=== PATIENT | female | born 1940 | race Caucasian/White ===

== ENCOUNTER → 2018-10-01 | Day surgery (SDC) | payer OTHER, BC ==
[~2018-10-01] VITALS: Ht 157.5 cm; Wt 112.0 kg
[~2018-10-01] MED LIST: DANOCRINE200 MG PO; DETROL LA4 MG PO; IBUPROFEN 200200 M1 PO; KEFLEX500 M1 PO; KLOR-CON 1010 MEQ PO; L-METHYLFOLATE15 M1 PO; LASIX 20 MG TAB20 MG PO; MOBIC15 MG PO; NORCO 5-325 TA1 EAC1 PO; TUMS PO
[2018-10-01 07:02] LABS: HEMATOCRIT 37.5 % (37.0-47.0)
[2018-10-01 07:10] LABS: CALCIUM 9.3 mg/dL (8.5-10.1); CREATININE 0.9 mg/dL (0.6-1.0)
[2018-10-01 07:14] VITALS: BP 164/87
--- NOTE | 2018-10-15 06:36 | O ---
[facility] [place] [address] OPERATIVE REPORT Name: ESTELA HERMAN Room #: [facility]#: [id number] Admission: 10/01/18 Attend Phys: Kevin Squires MD, F Discharge: Date of : 44 Report #: [id number] THIS REPORT FOR: //name// CC: NIKOLAI Squires MD DATE OF SERVICE: 10/01/2018 SURGEON: Kevin Squires MD BUCKLE [employer] PUNCHER: Sandra Ruggiero. PREOPERATIVE DIAGNOSES: 1. Chronic bilateral lower extremity wound. 2. Lipodermatosclerosis. 3. Venous stasis. POSTOPERATIVE DIAGNOSES: 1. Chronic bilateral lower extremity wound. 2. Lipodermatosclerosis. 3. Venous stasis. PROCEDURE: 1. Ultrasonic/mechanical debridement of chronic bilateral lower extremity wounds (423 cm2). 2. Application of skin substitute (423 cm2). ANESTHESIA: General plus local. ESTIMATED BLOOD LOSS: 10 mL. SPECIMEN: None. COMPLICATIONS: None appreciated. INDICATIONS FOR PROCEDURE: This is a 77-year-old female patient of Dr. Jenny Myers, referred by Dr. Nikolai Kenny. She was seen with bilateral lower extremity ulcers. The ulcers both started out as small areas that have increased in size over time. Biopsies have revealed lipodermatosclerosis. She has undergone weekly debridements with Dr. Kenny at [facility]. During her debridements, she complains of pain that lasts approximately 3 days after each visit. She presents today for ultrasonic/mechanical debridement of her lower extremity wounds with application of a skin substitute to boost wound healing. [facility] [address] [place] [address] OPERATIVE REPORT Name: ESTELA HERMAN Room #: [facility].#: [id number] Admission: 10/01/18 Attend Phys: Kevin Squires MD, F Discharge: Date of : 44 Report #: [id number] OPERATIVE FINDINGS: The patient had 3 left lower extremity wounds that measured 7 cm x 8 cm, 2 cm x 2 cm, and 3 cm x 2 cm for an area of 66 square cm. Her right lower extremity wound was nearly circumferential at 17 cm long and 21 cm wide for an area of 357 cm2. The total area involved was 423 cm2. DESCRIPTION OF PROCEDURE IN DETAIL: After the risks, benefits, and expectations of the operation were discussed in detail with the patient, informed consent was obtained. The patient was identified in the preoperative holding area. She was given IV antibiotics as documented in the chart in line with the SCIP metrics. The patient was taken to the operating room and she was placed in the supine position. She was given IV sedation and administered general anesthesia as documented. The patient's bilateral lower extremities were then prepped and draped in the standard sterile fashion. A time-out was performed to identify the correct patient and procedure. Informed consent was obtained. The areas of involvement on each lower extremity were measured. The Whoochonix ultrasonic debridement device was then used to mechanically debride the entire surface area of each of the wounds down to healthy bleeding tissue. No tissue was sent for pathology as none was excised. After using the Misonix on each of her lower extremities, Interfyl was prepared on the back table and applied to each wound base. MiroDerm was then applied to each wound. The MiroDerm was cut to size to fit each wound. The MiroDerm was secured to the wound around the periphery and internally with interrupted 3-0 Vicryl sutures. The wounds were then dressed with Adaptic, normal saline moistened 4 x 4s, ABD pads, Kerlix, and Maciel wraps. The patient tolerated the procedure well. She was awakened and taken to the recovery room in stable condition with no apparent intraoperative complications. <ELECTRONICALLY SIGNED> By: Kevin Squires MD, FACS 10/15/18 [id number] Kevin Squires MD, FACS /nt
== END | disposition home or self-care (01) ==
LOC: OR 06:13
PROVIDERS: Anesthesiology
DX: T81.89XA Other complications of procedures, not elsewhere classified, initial encounter (principal); L97.419 Non-pressure chronic ulcer of right heel and midfoot with unspecified severity; L97.429 Non-pressure chronic ulcer of left heel and midfoot with unspecified severity; I83.214 Varicose veins of right lower extremity with both ulcer of heel and midfoot and inflammation; I83.224 Varicose veins of left lower extremity with both ulcer of heel and midfoot and inflammation; Z91.040 Latex allergy status; M54.5 Low back pain; G89.29 Other chronic pain; M19.90 Unspecified osteoarthritis, unspecified site; Z90.49 Acquired absence of other specified parts of digestive tract; Z98.890 Other specified postprocedural states; Z88.2 Allergy status to sulfonamides; Z88.8 Allergy status to other drugs, medicaments and biological substances; Z79.891 Long term (current) use of opiate analgesic; Z79.899 Other long term (current) drug therapy
CPT/HCPCS: 50010; 50024; 50101; 50386; 51412; 56524; 57091; 57119; 57120; 57192; 57243; 62110; 62900; 70005